=== PATIENT | female | born 1970 | race Caucasian/White ===

== ENCOUNTER 2025-06-10 17:36 | Emergency (ER) | payer OTHER ==
[~2025-06-10] VITALS: Ht 182.9 cm; Wt 82.7 kg
[~2025-06-10 17:36] MED LIST: HYDROCODON-ACE1 EA10 PO; IBUPROFEN800 MG PO; L-LYSINE500 M1 PO; MSM1000 M1 PO; MULTIVITAMINS1 EAC7 PO; NEXIUM20 MG PO; VITAMIN D1000 UNI1 PO
[2025-06-10 19:02] VITALS: BP 138/92
== END 2025-06-10 19:01 | disposition home or self-care (01) ==
LOC: ED 17:36
DX: S69.92XA Unspecified injury of left wrist, hand and finger(s), initial encounter (principal); W55.12XA Struck by horse, initial encounter
CPT/HCPCS: 73130; 99283